=== PATIENT | female | born 1950 | race Caucasian/White ===

== ENCOUNTER 2022-10-01 10:00 | Outpatient (CLI) | payer MEDICARE, SELFPAY | END 2022-10-01 10:01 | disposition home or self-care (01) | LOC: NFLDREF 10-09 06:59 | PROVIDERS: PCP Physician Assistant Medical; Referring Provider Physician Assistant Medical; Visit Provider Physician Assistant Medical | DX: E78.5 Hyperlipidemia, unspecified (principal); I10 Essential (primary) hypertension | CPT/HCPCS: 80053; 80061; 84443 ==

== ENCOUNTER 2022-10-14 10:57 | Outpatient (CLI) | payer MEDICARE, SELFPAY ==
--- NOTE | 2022-10-14 11:30 | CRLHL7_ITS ---
For Patients: As a result of the Century Cures Act, medical imaging exams and procedure reports are released immediately into your electronic medical record. You may view this report before your referring provider. If you have questions, please contact your health care provider. BILATERAL SCREENING MAMMOGRAM WITH COMPUTER-AIDED DETECTION AND TOMOSYNTHESIS TECHNIQUE: CC and MLO views were obtained. These mammographic images have been obtained using full-field digital technique. These mammographic images were interpreted with the benefit of computer-aided detection. Breast tomosynthesis was used in this interpretation. COMPARISON FILM: 05/12/21, 04/09/20, 12/14/18. FINDINGS: There are scattered areas of fibroglandular density. IMPRESSION: There is no radiographic evidence for malignancy. ASSESSMENT: BI-RADS Category 1: Negative RECOMMENDATION: Routine screening mammogram in 1 year. A lay language report of this examination will be provided to the patient. CEM VERGARA M.D. Diagnostic Radiologist [email or web address] Transcribed: 10/14/2022, 2:[address]/Dictated by: Cem Vergara MD @ 10/14/2022 12:25:00 PM (Electronically Signed)
== END 2022-10-14 10:58 | disposition home or self-care (01) ==
LOC: MAMMO 10:58
PROVIDERS: PCP Physician Assistant Medical; Visit Provider Physician Assistant Medical
DX: Z12.31 Encounter for screening mammogram for malignant neoplasm of breast (principal)
CPT/HCPCS: 77063; 77067

== ENCOUNTER 2023-01-13 12:39 | Outpatient (CLI) | payer MEDICARE, SELFPAY ==
--- NOTE | 2023-01-13 13:00 | CRLHL7_ITS ---
For Patients: As a result of the Century Cures Act, medical imaging exams and procedure reports are released immediately into your electronic medical record. You may view this report before your referring provider. If you have questions, please contact your health care provider. DXA BONE MINERAL DENSITY STUDY, 01/13/2023 Reason for exam: Postmenopausal status. Current height (inches): 62.5 Weight (lbs.): 158.0 Menopause age: 55 Ethnicity: White 1. Have you had a previous hip or vertebral fracture? No. 2. Have you had any fractures during your adult life which did not result from significant trauma (e.g., auto accident)? No. 3. Did either of your parents have a hip fracture? Yes. 4. Do you smoke? No. 5. Have you ever taken Glucocorticoids? No. 6. Do you have rheumatoid arthritis? No. 7. Do you have secondary osteoporosis? No. 8. Do you drink 3 or more alcoholic drinks per day? No. 9. Are you being treated for osteoporosis? No. 10. Have you ever taken any of the following medications: Actonel, Evista, Fosamax, Miacalcin, Reclast, Boniva, Forteo, HRT (i.e., estrogen/hormone therapy), Protelos, Prolia, Vitamin D, Calcium, other ??? please specify. ANSWER: Yes; Fosamax, vitamin D, calcium. 11. Do you have any of the following medical conditions: Anorexia or bulimia, asthma or emphysema, end stage renal disease, hyperparathyroidism, any seizure disorders, cancer, inflammatory bowel diseases, hysterectomy, other ??? please specify. ANSWER: No. 12. What was your maximum height (inches)? 64. 13. Do you perform weightbearing exercise regularly? Yes. 14. Do you regularly consume dairy products? Yes. 15. Do you drink caffeinated beverages? Yes. 16. At what age did your period start? 14. 17. Are you premenopausal? No. 18. How many full-term pregnancies have you had? 2. 19. Have you ever missed your period for more than 6 months in a row (not including or menopause)? No. TECHNIQUE: Bone mineral density study was performed using the [employer]. FINDINGS: The results of the study expressed as bone mineral density (BMD) are as follows: Lumbar Spine L1 to L4: BMD: 1.021 g/cm2. T-score: -0.2. Z-score: 1.9. Neck Left: BMD: 0.600 g/cm2. T-score: -2.2. Z-score: -0.4. Right: BMD: 0.672 g/cm2. T-score: -1.6. Z-score: 0.2. Total Left: BMD: 0.702 g/cm2. T-score: -2.0. Z-score: -0.4. Right: BMD: 0.792 g/cm2. T-score: -1.2. Z-score: 0.3. IMPRESSION: Osteopenia. COMPARISON: Compared with scan of 10/15/2020, the bone mineral density has increased by 5.5% at the spine, decreased by 2.2% at the left hip, and increased by 1.5% at the right hip. *Comparison exams done prior to 12/2019 were performed on different unit, [employer]. FRAX RIGHT HIP 10-year Fracture Risk: Major Osteoporotic Fracture: 16% Hip Fracture: 3.9% Reported Risk Factors: US () Neck BMD = 0.672, BMI = 28.4, parental fracture LEFT HIP 10-year Fracture Risk LEFT Hip: Major Osteoporotic Fracture: 21% Hip Fracture: 6.9% Reported Risk Factors: [place] () Neck BMD = 0.600, BMI = 28.4, parental fracture CEM VERGARA M.D. Diagnostic Radiologist [email or web address] Transcribed: 1:[address]/Dictated by: Cem Vergara MD @ 01/14/2023 6:29:00 AM (Electronically Signed)
== END 2023-01-13 12:40 | disposition home or self-care (01) ==
PROVIDERS: PCP Physician Assistant Medical; Visit Provider Physician Assistant Medical
DX: Z78.0 Asymptomatic menopausal state (principal); M85.89 Other specified disorders of bone density and structure, multiple sites
CPT/HCPCS: 77080

== ENCOUNTER 2023-10-25 08:06 | Outpatient (CLI) | payer MEDICARE, SELFPAY | END 2023-10-25 08:07 | disposition home or self-care (01) | LOC: NFLDREF 10-26 08:04 | PROVIDERS: PCP Physician Assistant Medical; Referring Provider Physician Assistant Medical; Visit Provider Physician Assistant Medical | DX: Z00.00 Encounter for general adult medical examination without abnormal findings (principal); E78.5 Hyperlipidemia, unspecified; I10 Essential (primary) hypertension; M81.0 Age-related osteoporosis without current pathological fracture | CPT/HCPCS: 80053; 80061; 84443 ==

== ENCOUNTER 2024-05-02 11:00 | Outpatient (CLI) | payer MEDICARE, SELFPAY ==
--- NOTE | 2024-05-02 11:30 | CRLHL7_ITS ---
For Patients: As a result of the Century Cures Act, medical imaging exams and procedure reports are released immediately into your electronic medical record. You may view this report before your referring provider. If you have questions, please contact your health care provider. BILATERAL SCREENING MAMMOGRAM WITH COMPUTER-AIDED DETECTION AND TOMOSYNTHESIS TECHNIQUE: CC and MLO views were obtained. These mammographic images have been obtained using full-field digital technique. These mammographic images were interpreted with the benefit of computer-aided detection. Breast Tomosynthesis was used in this interpretation. COMPARISON FILM: 10/14/22, 05/12/21, 04/09/20. FINDINGS: There are scattered areas of fibroglandular density. IMPRESSION: There is no radiographic evidence for malignancy. ASSESSMENT: BI-RADS Category 1: Negative RECOMMENDATION: Routine screening mammogram in 1 year. A lay language report of this examination will be provided to the patient. Cem Gallardo M.D. Diagnostic Radiologist [email or web address] SP/Dictated by: Cem Gallardo MD @ 05/04/2024 12:11:00 PM (Electronically Signed)
== END 2024-05-02 11:01 | disposition home or self-care (01) ==
LOC: MAMMO 11:01
PROVIDERS: PCP Physician Assistant Medical; Visit Provider Physician Assistant Medical
DX: Z12.31 Encounter for screening mammogram for malignant neoplasm of breast (principal)
CPT/HCPCS: 77063; 77067

== ENCOUNTER 2024-10-26 07:39 | Outpatient (CLI) | payer MEDICARE, SELFPAY | END 2024-10-26 07:40 | disposition home or self-care (01) | LOC: NFLDREF 10-27 06:17 | PROVIDERS: PCP Physician Assistant Medical; Referring Provider Physician Assistant Medical; Visit Provider Physician Assistant Medical | DX: E78.2 Mixed hyperlipidemia (principal); I10 Essential (primary) hypertension; Z13.29 Encounter for screening for other suspected endocrine disorder | CPT/HCPCS: 80053; 80061; 84443 ==

== ENCOUNTER 2025-05-08 11:03 | Outpatient (CLI) | payer MEDICARE, SELFPAY ==
--- NOTE | 2025-05-08 11:30 | CRLHL7_ITS ---
For Patients: As a result of the Century Cures Act, medical imaging exams and procedure reports are released immediately into your electronic medical record. You may view this report before your referring provider. If you have questions, please contact your health care provider. INDICATION: BILATERAL SCREENING MAMMOGRAM, ASYMPTOMATIC 75 Y/O FEMALE COMPARISON: 05/02/2024, 10/14/2022, 05/12/2021 TECHNIQUE: Digital mammogram in CC and MLO projections including computer-aided detection (CAD) and tomosynthesis. BREAST COMPOSITION: There are scattered areas of fibroglandular density. FINDINGS: No suspicious findings. ASSESSMENT: BI-RADS 1 Negative RECOMMENDATION: Annual screening mammogram. A lay language report of this examination will be provided to the patient. Dictated by: Cem Gallardo MD @ 05/08/2025 12:18:13 (Electronically Signed)
--- NOTE | 2025-05-08 13:00 | CRLHL7_ITS ---
For Patients: As a result of the Century Cures Act, medical imaging exams and procedure reports are released immediately into your electronic medical record. You may view this report before your referring provider. If you have questions, please contact your health care provider. XR DXA Bone Mineral Density (BMD) Reason for exam: Asymptomatic menopausal state. Current height (inches): 62.5 Weight (lbs.): 155.0 Menopause age: 55 Ethnicity: White 1. Have you had a previous hip or vertebral fracture? No. 2. Have you had any fractures during your adult life which did not result from significant trauma (e.g., auto accident)? No. 3. Did either of your parents have a hip fracture? Yes. 4. Do you smoke? No. 5. Have you ever taken Glucocorticoids? No. 6. Do you have rheumatoid arthritis? No. 7. Do you have secondary osteoporosis? No. 8. Do you drink 3 or more alcoholic drinks per day? No. 9. Are you being treated for osteoporosis? No. 10. Have you ever taken any of the following medications: Actonel, Evista, Fosamax, Miacalcin, Reclast, Boniva, Forteo, HRT (i.e., estrogen/hormone therapy), Protelos, Prolia, Vitamin D, Calcium, other ??? please specify. ANSWER: Yes; Fosamax, vitamin D and calcium. 11. Do you have any of the following medical conditions: Anorexia or bulimia, asthma or emphysema, end stage renal disease, hyperparathyroidism, any seizure disorders, cancer, inflammatory bowel diseases, hysterectomy, other ??? please specify. ANSWER: No. 12. What was your maximum height (inches)? 64. 13. Do you perform weightbearing exercise regularly? Yes. 14. Do you regularly consume dairy products? Yes. 15. Do you drink caffeinated beverages? Yes. 16. At what age did your period start? 14. 17. Are you premenopausal? No. 18. How many full-term pregnancies have you had? 2. 19. Have you ever missed your period for more than 6 months in a row (not including or menopause)? No. TECHNIQUE: Bone mineral density study was performed using the [employer]. FINDINGS: The results of the study expressed as bone mineral density (BMD) are as follows: Lumbar Spine L1 to L4: BMD: 1.002 g/cm2. T-score: -0.4. Z-score: 1.9. Neck Left: BMD: 0.586 g/cm2. T-score: -2.4. Z-score: -0.4. Right: BMD: 0.644 g/cm2. T-score: -1.8. Z-score: 0.1. Total Left: BMD: 0.801 g/cm2. T-score: -1.2. Z-score: 0.5. Right: BMD: 0.843 g/cm2. T-score: -0.8. Z-score: 0.9. IMPRESSION: Osteopenia. COMPARISON: Compared with scan of 01/13/2023, the bone mineral density has decreased by 1.9% at the spine and increased by 10.0% at the hip. Compared with scan of 10/15/2020, the bone mineral density has increased by 5.5% at the spine and decreased by 0.2% at the hip. *Comparison exams done prior to 12/2019 were performed on different unit, [employer]. FRAX 10-year Fracture Risk Major Osteoporotic Fracture: 24% Hip Fracture: 12% Reported Risk Factors: [place] () Neck BMD = 0.586, BMI = 27.9, parental fracture. CEM VERGARA M.D. Diagnostic Radiologist [email or web address] Transcribed: 12:[address]/Dictated by: eCm Vergara MD @ 05/09/2025 10:06:00 AM (Electronically Signed)
== END 2025-05-08 11:04 | disposition home or self-care (01) ==
LOC: MAMMO 11:03
PROVIDERS: PCP Physician Assistant Medical; Visit Provider Physician Assistant Medical
DX: Z12.31 Encounter for screening mammogram for malignant neoplasm of breast (principal); Z78.0 Asymptomatic menopausal state; M85.89 Other specified disorders of bone density and structure, multiple sites
CPT/HCPCS: 77063; 77067; 77080

== ENCOUNTER 2025-06-05 10:43 | Emergency (ER) | payer MEDICARE, SELFPAY ==
--- OUTSIDE RECORDS SUMMARY | 2025-06-05 10:46 | XMS_ITS | Clinical Summary ---
Author Organization [facility] Address [address] [place] [id number] Care Team Providers Care Taxi Driver Name Role Phone Lluvia Yanes MD Primary Care Provider Source Comments You are receiving this document as you are listed as the primary care provider,follow-up provider, or the patient has been referred to you for consultation.This is in compliance with the Medicare and[facility] EHR Incentive Program,which states Providers who transition their patient to another setting of careor provider of care or refers their patient to another provider of care shouldprovide summary care record for each transition of care or referral. [facility] Allergies No known active allergies Medications Calcium Carbonate-Vitam in D (CALTRATE 600+D OR) Take 3 tablets by mouth twice a week. 06/18/2013 Active atorvastatin (LIPITOR) 10 MG tablet Take 10 mg by mouth daily. Active Active Problems Problem Noted Date Diagnosed Date PMB (postmenopausal bleeding) 03/04/2014 IFG (impaired fasting glucose) 06/18/2013 Symptomatic menopausal or female climacteric sta yuliya 07/05/2006 Overview (03/23/2017): LW Onset: Sep 2005 ; Menopause Pure hypercholesterolemia 02/21/2004 Overview (03/23/2017): Hypercholesterolemia Panic disorder without agoraphobia 02/21/2004 Overview (03/23/2017): Panic Disorder w/o Agoraphobia Resolved Problems Problem Noted Date Diagnosed Date Resolved Date Varicella 05/17/2005 05/17/2005 Overview (03/23/2017): Varicella Zoster Premenopausal menorrhagia 02/21/2004 Overview (03/23/2017): Bleeding Perimenopausal Immunizations Immunization Administration Dates Next Due Flu Vac Preserv Free (3+yrs) 05/04/2011, 07/12/2008,07/11/2007,2005,07/12/2005,07/09/2004 Influenza IIV4 (Quadrivalent ) 0.5mL (54284) 05/15/2013 TDAP (BOOSTRIX) 06/18/2013 Td 07/05/2006,10/05/1999 Family History Medical History Relation Name Comments High Cholesterol Father Cataract Mother Hypertension Mother Macular Degeneration Mother Amblyopia/Strabismus Negative Family History Cancer Negative Family History Cancer, Breast Negative Family History Cancer, Colon Negative Family History Cancer, Ovary Negative Family History Diabetes Negative Family History Glaucoma Negative Family History Heart Failure Negative Family History Retinal Detachment Negative Family History Stroke Negative Family History Relation Name Status Comments Father Alive Mother Alive Social History Tobacco Use Types Packs/Day Years Used Date Smoking Tobacco: Never Smokeless Tobacco: Never Alcohol Use Standard Drinks/Week Comments Yes 1 (1 standard drink = 0.6 oz pur e alcohol) weekly Comments No Sex and Gender Information Value Date Recorded Sex Assigned at Not on file Legal Sex Female 12:23 PM CDT Gender Identity Not on file Sexual Orientation Not on file 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 Not on file Not on f ile Not on file Last Filed Vital Signs Vital Sign Reading Time Taken Comments Blood Pressure 148/85 03/20/2014 11:10 AM CDT Pulse 83 03/20/2014 11:10 AM CDT Temperature - - Respiratory Rate - - Oxygen Saturation - - Inhaled Oxygen Concentration - - Weight 71.2 kg (157 lb) 03/20/2014 11:10 AM CDT Height 159.4 cm (5' 2.75) 06/18/2013 8:53 AM CS T Body Mass Index 28.03 06/18/2013 8:53 AM [facility] Plan of Treatment Health Maintenance Due Date Last Done Comments Hep C Screening (Preventive Services) 1950 Adult Preventive Visit 1970 Pneumococcal Vaccine 50+ Yrs (1 of 1 - PCV) 2002 Zoster/Shingles Vaccine (1 of 2) 2002 Colonoscopy 06/26/2008 06/25/2008 Mammogram 09/05/2015 09/05/2014, 0209/2013, 08/29/2012, Additional history exists Cholesterol 06/18/2018 06/18/2013, 10/30, 07/12/2008, Additional history exists DTaP/Tdap/Td Vaccine (2 - Tdap) 06/18/2023 06/18/2013, 07/05/2006, 10/05/1999 COVID-19 Vaccine (1 - season) 2025 Influenza Vaccine (#1) 2025 3, 05/04/2011, 07/12/2008, Additional history exists RSV Vaccine (1 - 1-dose 75+ series) 2027 HepA Vaccine Aged Out No longer eligi ble based on patient's age to complete this topic HepB Vaccine Aged Out No longer eligi ble based on patient's age to complete this topic Hib Vaccine Aged Out No longer eligi ble based on patient's age to complete this topic IPV (Polio) Vaccine Aged Out No longe r eligible based on patient's age to complete this topic MCV4 Vaccine Aged Out No longer eligi ble based on patient's age to complete this topic Meningococcal B Vaccine Aged Out No l onger eligible based on patient's age to complete this topic Procedures Procedure Name Priority Date/Time Associated Diagnosis Comments MM MAMMOGRAM SCREENING BILAT W CAD Routine 09/05/2014 10:45 AM [facility] Other screening mammogram LIPID PANEL & DIRECT LDL (IF NEEDED) Routine 06/18/2013 10:07 AM [facility] Pure hypercholesterolemia (HRC) ENDOSCOPY, COLON, SCREENING/DIAGNO STIC Routine 06/25/2008 2:17 PM [facility] from Last 3 Months or Most Recently Relevant to Health Maintenance Results * MM Mammogram Screening Bilat W CAD (09/05/2014 10:45 AM [facility]) Anatomical Region Laterality Modality Breast Bilateral Mammography Impressions 09/05/2014 10:47 AM [facility] : BI-RADS 1 Negative (overall) Follow Up Mammogram in 1 year - Bilateral The results and recommendations of this examination will be communicated to the patient by the [facility] and we will attempt to schedule any recommended imaging follow up with the patient. Narrative 09/05/2014 10:47 AM [facility] Compared to: 09/03/2013 MM Mammogram Screening Bilateral W Cad, 08/29/2012 MM MAMMOGRAM DIGITAL SCRN W CAD, 08/17/2011 MM MAMMOGRAM DIGITAL SCRN W CAD Bilateral Breast Findings: There are scattered areas of fibroglandular density in the breasts. No significant mass, calcifications or other abnormalities are seen in either breast. Procedure Note Thelma Jameson MD - 03/30/2016 Compared to: 09/03/2013 MM Mammogram Screening Bilateral W Cad,08/29/2012 MM MAMMOGRAM DIGITAL SCRN W CAD, 08/17/2011 MM MAMMOGRAM DIGITAL SCRN W CAD Bilateral Breast Findings: There are scattered areas of fibroglandular density in the breasts. No significant mass, calcifications or other abnormalities are seen in either breast. IMPRESSION : BI-RADS 1 Negative (overall) Follow Up Mammogram in 1 year - Bilateral The results and recommendations of this examination will be communicated to the patient by the [facility] and we will attempt to schedule any recommended imaging follow up with the patient. Annemarie WHITINGC RAD OSIEL Final Result * (ABNORMAL) Lipid Panel and Direct LDL(If Needed) (06/18/2013 10:07 AM [facility]) Cholesterol 236(H) 0 - 200 mg/dL HP CONVERSION Triglycerides 95 0 - 149 mg/dL HP CONVERSION HDL Cholesterol 52 >39 mg/dL HP CONVERSION Cholesterol/HDL Ratio Screen 4.5 HP CONVERSION LDL Calculated 165(H) 19 - 130 mg/dL HP CONVERSION Hours Fasting 12.0 HP CONVERSION 06/18/2013 10:0 7 AM [facility] 06/18/2013 10:07 AM [facility] Narrative HP CONVERSION - 06/18/2013 10:36 AM [facility] Performed at [facility], [address] [place] [address] us Annemarie Leon PA-C LAB_1 Final Result HP CONVERSION * Endoscopy, colon, diagnostic (06/25/2008 2:17 PM [facility]) Anatomical Region Laterality Modality Other us User Conversion ET GI PROCEDURE ORDERABLES Final Result from Last 3 Months or Most Recently Relevant to Health Maintenance Insurance [facility] IN[facility] FAMILY Care Teams Taxi Driver Relationship Specialty [place] [id number] [place] [address] PCP - General 08/29/14
[2025-06-05 10:49] VITALS: BP 185/90; PULSE 85; RESP 18; TEMP 37.1; O2SAT 98
--- NOTE | 2025-06-05 11:00 | ED.GENADULT ---
HPI - General Adult General Chief complaint: Unspecified Complaint, Adult Stated complaint: Disoriented Time Seen by Provider: 06/05/25 11:00 History of Present Illness HPI narrative: Patient presents to the emergency department complaining of disorientation. Patient was working today and states she felt a little off. Patient has a hard time describing her symptoms however is alert and oriented. Patient denies any headache or vision changes . Denies any recent illness. Is not diabetic. Does endorse some anxiety. 75-year-old woman presenting to the emergency department with concern of feeling ?off. [place] well yesterday and this earlier morning. She works assisting on a special needs bus. Notes a history of vertiginous symptoms in the past. One point I believe getting off the bus began to feel off vision. Associated little bit maybe with some vertiginous symptoms but she was not dizzy. No sense of chest pressure lightheadedness or shortness of breath. Memory of recent events just seemed kind of foggy. No headache. No visual changes. Discoordination. Got home and was feeling some nausea which she might be contributing also to heightened anxiety. Blood pressure was notably high at home. Otherwise has as noted been well. No abdominal discomfort. No dysuria frequency urgency. No sense of palpitations. No sinus symptoms. Related Data Home Medications ?Medication ?Instructions ?Recorded ?Confirmed calcium 500 mg (as 1 tab PO BID 10/08/22 06/05/25 carbonate)-vitamin D3 5 mcg (200 unit) tablet Previous Rx's ?Medication ?Instructions ?Recorded alendronate 70 mg tablet (Fosamax) 70 mg PO QWEEK 3 months #13 tabs 11/05/24 amlodipine 5 mg tablet 5 mg PO QHS #90 tabs 11/05/24 atorvastatin 10 mg tablet 10 mg PO QHS #90 tabs 11/05/24 Allergies Allergy/AdvReac Type Severity Reaction Status Date / Time No Known Allergies Allergy Unknown Unknown Verified 06/05/25 10:55 Review of Systems Status of ROS: Reports: 6 or more systems reviewed and unremarkable except as noted in History and below [facility] Medical History Postmenopausal bleeding ?N95.0 - Postmenopausal bleeding (ICD-10) Surgical History Status post total left knee replacement ?Z96.652 - Presence of left artificial knee joint (ICD-10) History of colonoscopy ?Z98.890 - Other specified postprocedural states (ICD-10) History of knee replacement procedure of left knee ?Z96.652 - Presence of left artificial knee joint (ICD-10) History of hysteroscopy ?Z98.890 - Other specified postprocedural states (ICD-10) History of D&C ?Z98.890 - Other specified postprocedural states (ICD-10) History of surgery ?Z98.890 - Other specified postprocedural states (ICD-10) Family History Maternal Grandmother Breast cancer, Onset Age: 70 Mother High blood pressure Osteoporosis Father High blood pressure Social History Narrative: Non-smoker Occasional alcohol consumption Does not use illicit drugs What is your current living situation?: declined to answer Problems where you live: declined to answer In the past 12 months, utilities in danger of being shut off: declined to answer In past 12 months, lack of transportation kept you from medical appts, meetings, work, or getting things needed for daily living: declined to answer In the past 12 mos, have been you worried that your food would run out before you had money to buy more?: declined to answer In the past 12 mos, the food you bought just didn't last and you didn't have money to buy more?: declined to answer Smoking Status: Never smoker How often does anyone, including family, friends and others, physically hurt you: decline to answer How often does anyone, including family, friends and others, insult or talk down to you: decline to answer How often does anyone, including family, friends and others, threaten you with harm: decline to answer How often does anyone, including family, friends and others, scream or curse at you: decline to answer Health Related Social Needs: unsheltered homelessness (Z59.02) Exam Narrative: Exam Narrative: Very pleasant. Energetic. Talkative. Skin is warm and dry. Moving all extremities without difficulty. Cranial nerves 2-12 are intact. Pupils are 2-3 mm and equal. Appropriately reactive. Extraocular movements are full without nystagmus. Not reproducing with head movement this sense of discomfort. Lungs appear clear. Heart in regular rate and rhythm without murmur rub or gallop. Extremities with good strength and fluid movement without edema. [id number]-[id number] is accurate. Negative Romberg's. Could toe heel. She is cognitively intact. No facial swelling erythema or tenderness. TMs are clear though I think the right one is scarred. Const: Vital Signs, click to edit/add: Vital Signs - 24 hr 06/05/25 10:49 Temperature 98.7 F Pulse Rate [Right Pulse Oximeter] 85 Respiratory Rate 18 Blood Pressure [Ri ght Upper Arm] 185/90 H Pulse Oximetry 98 Oxygen Delivery Me thod Room Air Documenting provider has reviewed patient's vital signs: yes Course Vital Signs Vital signs: Initial Vital Signs Temperature 98.7 F 06/05/25 10:49 Temperature Source Temporal Artery Scan 06/05/25 10:49 Pulse Rate 85 06/05/25 10:49 Pulse Rhythm Regular 06/05/25 10:49 Pulse Strength 3+ Normal 06/05/25 10:49 Respiratory Rate 18 06/05/25 10:49 Blood Pressure 185/90 H 06/05/25 10:49 Blood Pressure Mean 121 H 06/05/25 10:49 Blood Pressure Position Sitting 06/05/25 10:49 Pulse Oximetry 98 06/05/25 10:49 Oxygen Delivery Method Room Air 06/05/25 10:49 Vital Signs Temperature 98.7 F 06/05/25 10:49 Pulse Rate 85 06/05/25 10:49 Respiratory Rate 18 06/05/25 10:49 Blood Pressure 185/90 H 06/05/25 10:49 Pulse Oximetry 98 06/05/25 10:49 Oxygen Delivery Method Room Air 06/05/25 10:49 Temperature 98.7 F 06/05/25 10:49 Pulse Rate 85 06/05/25 10:49 Respiratory Rate 18 06/05/25 10:49 Blood Pressure 185/90 H 06/05/25 10:49 Pulse Oximetry 98 06/05/25 10:49 Oxygen Delivery Method Room Air 06/05/25 10:49 Medical Decision Making MDM Narrative Medical decision making narrative: I suspect some combination of the vague vertiginous symptoms, software sales manager hours and anxiety. I think this would be difficult to quantify. Discussed this as such already. Takes minimal medication and none that I think would affect this change necessarily in part as presenting also with relatively normal vitals other than elevated blood pressure.. Check EKG for any indication of dysrhythmia. No objective deficits here at this time to suggest a CVA or pending event. No persistent symptoms suggesting anemia or electrolyte abnormalities. Reviewed records. Last labs were 6 or 7 months ago. Very stable over the last 3 years Did propose bit of rest here and EKG. Initial EKG independently reviewed by me shows normal sinus rhythm at a rate of 74. There is some baseline irritability/interference. I do not see any concerning changes otherwise. Further conversation she is describing what was occurring prior to her feeling a little bit unwell and that was cleaning out the bus involving turning bending over. In the sense of being in little a bit of a fog after this in conversation. I discussed that would be certainly happy to discuss this further with neuro/Stroke Neuro if she would like. Recheck blood pressure manually by myself at 170/70. Overall Grace is reassured. She plans to go home in distract herself a little bit and then be re-evaluated as needed. We discussed signs and symptoms of CVA or cardiac concerns. See patient discharge plan for further discussion Stay well hydrated. Return for worsening symptoms particularly if any evidence of deficits as discussed, dizziness at rest. Follow-up persistently elevated blood pressure. Medical Records Medical records reviewed: Yes I reviewed the patient's medical records Lab Data Labs: Lab Results 06/05/25 Range/Units 10:58 Urine Color Yellow (Yellow) Urine Appearance Clear (Clear) Urine pH 7.0 (5.0-8.5) Ur Specific [place] 1.010 (1.000-1.030) Urine Protein Negative (Negative) Urine Glucose (UA) Negative (Negative) Urine Ketones Negative (Negative) Urine Blood Trace-intact A (Negative) Urine Nitrite Negative (Negative) Urine Bilirubin Negative (Negative) Urine Urobilinogen 0.2 (0.2-1.0) Ur Leukocyte Esterase 1+ A (Negative) Urine RBC 0-2 (0-2) Urine WBC 2-5 (0-5) Ur Squamous Epith Cells Few (None-Few) Urine Bacteria Few A (None) Discharge Plan Discharge Clinical Impression: Malaise Patient Disposition: Home w/ Parent or Adult Condition: Improved Additional Instructions: Stay well hydrated. Return for worsening symptoms particularly if any evidence of deficits as discussed, dizziness at rest. Follow-up persistently elevated blood pressure. Prescriptions: No Action amlodipine 5 mg tablet 5 mg PO QHS Qty: 90 3RF alendronate [Fosamax] 70 mg tablet 70 mg PO QWEEK 90 Days Qty: 13 3RF atorvastatin 10 mg tablet 10 mg PO QHS Qty: 90 3RF calcium carbonate-vitamin D3 500 mg-5 mcg (200 unit) tablet 1 tab PO BID Follow Up/Referrals: Celsa Wang PA-C [Primary Care Provider, Family Practice] Stand Alone Forms: [employer] Info Instructions
[2025-06-05 11:23] LABS: Appearance Urine Clear (Clear)
== END 2025-06-05 12:14 | disposition home or self-care (01) ==
PROVIDERS: Emergency Provider Family Medicine; PCP Physician Assistant Medical
DX: R53.81 Other malaise (principal)
CPT/HCPCS: 81001; 87086; 93005; 99283; 99284